=== PATIENT | female | born 1970 | race Caucasian/White ===

== ENCOUNTER 2023-09-30 10:21 | Outpatient (CLI) | payer BC, SELFPAY ==
--- NOTE | 2023-09-30 10:26 | MM_ITS ---
PROCEDURE INFORMATION: Exam: MG Bilateral Screening 3D Mammography Exam date and time: 09/30/2023 10:29 AM Age: 53 years old Clinical indication: Screening mammogram TECHNIQUE: Imaging protocol: Bilateral Screening tomosynthesis and 2D mammography including computer-aided detection (CAD) when performed. COMPARISON: No relevant prior studies available. FINDINGS: MAMMOGRAPHY: Breast composition: The breasts are almost entirely fatty. Mass: None. Architectural distortion: No new or suspicious architectural distortion. Calcifications: No new or suspicious calcifications are present Asymmetric density: No new or suspicious asymmetric density is present Skin thickening: None. Axillary adenopathy: None. IMPRESSION: No mammographic evidence of malignancy. Recommend annual screening mammography unless otherwise clinically indicated. ASSESSMENT: BI-RADS category 1: Negative
== END 2023-09-30 23:59 ==
LOC: RAD 10:21
PROVIDERS: PCP Nurse Practitioner Family; Visit Provider Nurse Practitioner Family
DX: Z12.31 Encounter for screening mammogram for malignant neoplasm of breast (principal)
CPT/HCPCS: 77063; 77067

== ENCOUNTER 2024-01-27 10:13 | Outpatient (CLI) | payer BC, SELFPAY ==
--- NOTE | 2024-01-27 10:18 | XR_ITS ---
FINAL REPORT CLINICAL HISTORY: Foot pain x2 weeks COMPARISON: None FINDINGS: 3 images of the right foot were obtained. There is no evidence of fracture or dislocation. There is mild and moderate hypertrophic change of the first MTP joint. Moderate plantar spurring is present. Small osteophytes are noted. There is no soft tissue abnormality identified. IMPRESSION: No acute bony abnormality. Degenerative change as described above. Reviewed, Interpreted and Dictated by Christian Irving MD Transcribed by Bea Cordero Authenticated and [facility]
== END 2024-01-27 23:59 | disposition home or self-care (01) ==
LOC: RAD 10:14
PROVIDERS: PCP Nurse Practitioner Family; Visit Provider Nurse Practitioner
DX: B35.3 Tinea pedis (principal); L84 Corns and callosities; E11.8 Type 2 diabetes mellitus with unspecified complications; Z79.4 Long term (current) use of insulin; Z79.84 Long term (current) use of oral hypoglycemic drugs
CPT/HCPCS: 73630

== ENCOUNTER 2024-02-02 09:00 | Outpatient (CLI) | payer BC, SELFPAY ==
[2024-02-02 09:53] LABS: Blood Urea Nitrogen 13 mg/dl (7-17); Estimated Glomerular Filt Rate 76 ml/min (>60); GFR (African American) 92 ML/MIN (>60)
== END 2024-02-02 23:59 | disposition home or self-care (01) ==
LOC: LAB 09:02
PROVIDERS: Nurse Practitioner Family; PCP Nurse Practitioner Family; Visit Provider Nurse Practitioner Family
DX: Z76.89 Persons encountering health services in other specified circumstances (principal); Z01.812 Encounter for preprocedural laboratory examination
CPT/HCPCS: 82565; 84520

== ENCOUNTER 2024-02-03 09:18 | Outpatient (CLI) | payer BC, SELFPAY ==
--- NOTE | 2024-02-03 09:23 | CT_ITS ---
FINAL REPORT TECHNIQUE: Axial CT images of the abdomen and pelvis were obtained before and after the administration of IV contrast. This study was performed with techniques to keep radiation doses as low as reasonably achievable (ALARA). Individualized dose reduction techniques using automated exposure control or adjustment of mA and/or kV according to the patient's size were employed. CLINICAL HISTORY: ABDOMINAL MASS COMPARISON: None FINDINGS: Abdomen: There is partial visualization of a 5 mm nodule in the left lung base, best seen on the first image of the sequence. There is a 4 mm nodule in the right lung base, best seen on image #9. The heart is normal in size. There is mild fatty infiltration of the liver present. The liver is enlarged. . The spleen is unremarkable. No adrenal masses present. The pancreas has an unremarkable appearance. The kidneys enhance normally. The aorta is normal in caliber. There is a fat-containing umbilical hernia seen best on image #97 of series 5. There is a large hernia in the mid anterior pelvic wall, eccentric to the left, with several loops of small bowel. There is mild mucosal thickening of the the small bowel wall contained within the hernia sac with mild enlargement of the more proximal small bowel loops. No free fluid is identified. Precontrast images demonstrate no evidence of nephrolithiasis. Pelvis: The appendix is not well visualized. The urinary bladder is unremarkable. No inflammatory process is seen. There is no evidence of mass or adenopathy. There is no evidence of bowel obstruction. IMPRESSION: Large hernia in the mid anterior pelvic wall, eccentric to the left, which contains several loops of small bowel. There is mild wall thickening of the small bowel contained within the hernia sac, with mild enlargement of more proximal small bowel loops. Prompt surgical evaluation is recommended. At least 2 nodules are visualized in the lung bases, and correlation with other imaging modalities such as chest CT is suggested. Reviewed, Interpreted and Dictated by Christian Irving MD Transcribed by Bea Cordero Authenticated and [facility]
[2024-02-03] MEDS: IOPAMIDOL-370 (76%);100ML BOTTLE 75 ML IV (09:59)
[2024-02-03] MEDS: SODIUM CHLORIDE 0.9% 10ML SYR (RAD ONLY) 10 ML IV (09:59)
== END 2024-02-03 23:59 | disposition home or self-care (01) ==
LOC: RAD 09:18
PROVIDERS: PCP Nurse Practitioner Family; Visit Provider Nurse Practitioner Family
DX: R19.00 Intra-abdominal and pelvic swelling, mass and lump, unspecified site (principal)
CPT/HCPCS: 74178; Q9967

== ENCOUNTER 2024-02-10 11:10 | Outpatient (CLI) | payer BC, SELFPAY ==
--- NOTE | 2024-02-10 11:14 | CT_ITS ---
FINAL REPORT TECHNIQUE: The patient was injected with IV contrast. Axial images were obtained of the chest by computed tomography. Precontrast images were also obtained. This study was performed with techniques to keep radiation doses as low as reasonably achievable (ALARA). Individualized dose reduction techniques using automated exposure control or adjustment of mA and/or kV according to the patient's size were employed. CLINICAL HISTORY: MULTIPLE LUNG NODULES COMPARISON: CT abdomen and pelvis 02/03/2024 FINDINGS: CT OF THE CHEST WITH AND WITHOUT CONTRAST: There is no axillary adenopathy. There is no mediastinal or hilar adenopathy. Heart size is normal. There is severe left coronary artery calcification. There is no pericardial or pleural effusion identified. Mild emphysema is noted. There is a 7 mm nodule at the left lower lobe. There are several other less than 5 mm bilateral pulmonary nodules. Mild atelectasis or scarring is noted at the left lung base. IMPRESSION: Bilateral lung nodules as above. Recommend additional follow-up chest CT in 6 months to evaluate for stability. Reviewed, Interpreted and Dictated by Brian Hernandez III, MD Transcribed by Jagruti Muro Authenticated and [facility]
[2024-02-10] MEDS: SODIUM CHLORIDE 0.9% 10ML SYR (RAD ONLY) 10 ML IV (11:36)
[2024-02-10] MEDS: IOPAMIDOL-370 (76%);100ML BOTTLE 75 ML IV (11:36)
== END 2024-02-10 23:59 | disposition home or self-care (01) ==
LOC: RAD 11:10
PROVIDERS: PCP Nurse Practitioner Family; Visit Provider Nurse Practitioner Family
DX: R91.8 Other nonspecific abnormal finding of lung field (principal)
CPT/HCPCS: 71270; Q9967

== ENCOUNTER 2024-04-13 11:03 | Outpatient (CLI) | payer BC, SELFPAY ==
[2024-04-13 11:25] LABS: Blood Urea Nitrogen 11 mg/dl (7-17); Estimated Glomerular Filt Rate 58 ml/min (>60); GFR (African American) 70 ML/MIN (>60)
== END 2024-04-13 23:59 | disposition home or self-care (01) ==
LOC: LAB 11:05
PROVIDERS: PCP Nurse Practitioner Family; Visit Provider Physician Assistant
DX: R06.02 Shortness of breath (principal)
CPT/HCPCS: 36415; 82565; 84520

== ENCOUNTER 2024-04-15 08:00 | Outpatient (CLI) | payer BC, SELFPAY ==
[2024-04-15] VITALS (11 sets, daily range): BP systolic 114–131; BP diastolic 52–74; PULSE 54–81; RESP 18; TEMP 36.6; O2SAT 97–100; BMI 40.8
--- NOTE | 2024-04-15 08:00 | CA_ITS ---
APPROVED REPORT EXAM: Comprehensive 2D, Doppler, and color-flow Echocardiogram Bandage Maker: Emilie De La Paz RDCS Ht: 5 ft 1 in Wt: 216lbs BSA: 1.95 BP: 129/50 mmHg Indications: ABN EKG,COPD,DM,HTN,HLP,CP 2D Dimensions Left Atrium 4.54 cm F: 2.7 - 3.8 LVOT 1.81 cm (M/F) 1.5-2.5 M-Mode Dimensions RVDd 2.39 cm (0.9-2.6) LVDd 5.93 cm (3.5-5.7) Ao Diam 2.90 cm (2.0-3.7) LVDs 4.03 cm (3.5-5.7) IVSd 0.68 cm (0.6-1.1) PWd 0.87 cm (0.6-1.1) EF (Teich) 59.30% FS 32.00% EDV (Teich) 175.20 mL TAPSE 1.87 (<1.7) ESV (Teich) 71.30 mL LV Diastology E Decel Time 206 (160-240 msec) E/A Ratio 1.1 MED E' 6.0 (>= 7 cm/sec) E'/MED E' Ratio 14.53 (<= 14) LAT E' 9.6 (>= 10 cm/sec) E/LAT E' Ratio 9.08 (<= 14) Mitral Valve MV E Max Liu. 87.0 (40-130 cm/s) MV A Velocity 79.0 (40-130 cm/s) E/A Ratio 1.10 MV Decel. Time 206 (160-240 ms) Left Ventricle The left ventricle is normal size. The left ventricular systolic function is normal. The left ventricular ejection fraction is within the normal range. There is normal left ventricular wall thickness. There is normal LV segmental wall motion. The left ventricular diastolic function is normal. LVEF is 55%. Right Ventricle The right ventricle is normal size. The right ventricular systolic function is normal. Atria The left atrium size is normal. The right atrium size is normal. There is no Doppler evidence of interatrial shunt. Aortic Valve The aortic valve is mildly thickened. There is no aortic valvular stenosis. Trace aortic regurgitation. Mitral Valve The mitral valve is normal in structure. No evidence of mitral valve stenosis. Trace mitral regurgitation. Tricuspid Valve The tricuspid valve leaflets are thin and pliable. Trace tricuspid regurgitation. Pulmonic Valve The pulmonary valve is normal in structure. Trace pulmonic regurgitation. Great Vessels The aortic root is normal in size. The ascending aorta is not well visualized. IVC is normal in size and collapses >50% with inspiration. Pericardium There is no pericardial effusion. Other Information Study Quality: Fair Conclusion Normal biventricular systolic function. No significant valvular stenosis or regurgitation. Electronically signed by : Capri Reyes MD 04/18/2024 19:33:05
--- NOTE | 2024-04-15 08:30 | CT_ITS ---
APPROVED REPORT Paper Making Machine Operator: CLINICAL INDICATION Chest Pain TECHNIQUE Image Acquisition: A 128 slice MDCT scanner ([employer] View) was used for data acquisition. A noncontrast coronary calcium scan was performed. A CT attenuation threshold of 130 Hounsfield units (HU) was used for the detection of calcium in contiguous voxels of 1 sq mm in area to be counted as individual lesions. Bolus tracking in the ascending aorta with a threshold of 180 HU was performed. Immediately afterwards, ECG synchronized cardiac CT was then performed from the cardiac base to apex using retrospective gating with ECG tube current modulation. A total of 85 mL of Isovue 370 mg/mL contrast medium was administered at 5 mL/sec followed by a saline flush using a biphasic injection protocol. A tube voltage of 120 KVp was used. The patient received the following medications prior to the cardiac CT. 5 mg of intravenous metoprolol 0.8 mg of sublingual nitroglycerin The average heart rate at the time of acquisition was 61 bpm and regular. Image Reconstruction Transaxial images were reconstructed at 0.67 mm slide thickness. Data was reviewed interactively on an advanced workstation capable of 2 and 3-dimensional displays in all conventional reconstruction formats, including multiplanar reformations, maximum intensity projections, curved multiplanar reformations, and volume rendered reconstructions. When applicable, selected routine images describing the relevant coronary anatomy and pathology were saved and sent to PACS. Complications None Technical Quality Overall image quality was suboptimal. Coronary artery opacification was fair. Total DLP (Dose-Length Product) is 3925.5 mGy-cm. The reported value represents the total of one or more individual components during the CT acquisition of this date and at this time, and as such, the same value may appear in more than one CT report depending on the interpreting/reporting physicians. COMPARISON None FINDINGS CT Coronary Calcium Scoring LMA (Left Main Artery) = 0 LAD (Left Anterior Descending) = 297 LCX (Left Coronary Circumflex) = 17 RCA (Right Coronary Artery) = 14 Total Calcium Score = 327 using the AJ-130 method. The observed calcium score of 327 is at 99th percentile for subjects of the same age, sex, and race/ethnicity. The interpretation of the calcium heart score is based on the following continuum*: 0 = no calcified plaque detected (risk of coronary artery disease is very low ??? less than 5%) 1-10 = calcium detected in extremely minimal levels (risk of coronary diseases is still low ??? less than 10%) 11-100 = mild levels of plaque detected with certainty (mild or minimal narrowing of heart arteries is likely) 101-400 = definite,at least moderate levels of plaque detected (relatively high risk of a heart attack within 3-5 years) >401-999 = extensive levels of plaque detected (high risk of heart attack, high levels of vascular disease are present, high likelihood of at least one significant coronary narrowing) *The calcium heart score quantifies the burden of coronary calcification/plaque in the coronary arteries. The calcium heart score is not able to evaluate the presence or burden of non-calcified (i.e. soft) plaque. There is also identifiable calcification in the ascending and descending thoracic aorta. Coronary CT Angiography The coronary arterial system is right dominant. Quantitative Stenosis Grading: Left Main (LM): The left main originates normally from the left sinus of Valsalva. The LM bifurcates into the left anterior descending artery and left circumflex artery. The LM is patent with no evidence of atherosclerosis. Left Anterior Descending (LAD) and Diagonal Branches: The LAD gives off 2 diagonal branch(es). Grossly, there is mixed calcified/noncalcified plaque in the proximal LAD, with up to 50 to 70% luminal stenosis. There is no evidence of LAD-myocardial bridge. Left Circumflex (LCX) and Obtuse Marginals (OM): The LCX gives off 1 Obtuse Marginal (OM) branch(es). There is calcification in the proximal LCx, with < 30% luminal stenosis. Right Coronary Artery (RCA): The RCA originates normally from the right sinus of Valsalva. The RCA gives off a posterior descending artery (PDA) and posterolateral (PL) branches. There is mixed calcified/noncalcified plaque in the proximal RCA, with 30-50% luminal stenosis. Non-Coronary Cardiac Findings: Analysis of the left ventricular (LV) structure and function was performed after 3-D reconstruction of the LV from axial images, with user-corrected automatic contouring for assessment of LV volumes and user-defined reconstruction from oblique planes for measurement of 3-D cardiac structure and function. -The left ventricle systolic function is normal. -There is no left atrial appendage filling defect. Two right pulmonary veins and two left pulmonary veins drain normally into the left atrium. -No pericardial thickening or calcification. -Central and branch pulmonary arteries in the [id number] are unremarkable. -Thoracic aorta within the visualized thoracic aortic-branches in the [id number] is unremarkable. Extracardiac Structures No significant extra-cardiac findings. Note, however, that this study is focused on the cardiac findings. IMPRESSION -Presence of coronary calcification with an Agatston score = 327 using the AJ-130 method. -The observed calcium score of 327 is at 99th percentile for subjects of the same age, sex, and race/ethnicity. -Multivessel atherosclerotic coronary disease with possible evidence of significant flow-limiting atherosclerosis of the proximal LAD segment. -CAD-RADS 3. Management recommendations per ACC/AHA guidelines*, as clinically appropriate. *Recommendations: CAD RADS 0: Reassurance. Consider non-atherosclerotic causes of chest pain. CAD RADS 1: Consider non-atherosclerotic causes of chest pain. Consider preventive therapy and risk factor modification. CAD RADS 2: Consider non-atherosclerotic causes of chest pain. Consider preventive therapy and risk factor modification, particularly for patients with nonobstructive plaque in multiple segments. CAD RADS 3: Consider further functional testing. Consider symptom-guided anti-ischemic and preventive pharmacotherapy as well as risk factor modification per published guideline statements. CAD RADS 4A: Consider further functional testing or invasive coronary angiography with revascularization per published guideline statements. Consider symptom-guided anti-ischemic and preventive pharmacotherapy as well as risk factor modification per published guideline statements. CAD RADS 4B: Invasive coronary angiography recommended with revascularization per published guideline statements. Consider symptom-guided anti-ischemic and preventive pharmacotherapy as well as risk factor modification per published guideline statements. CAD RADS 5: Consider invasive angiography and/or viability assessment with revascularization per published guideline statements. Consider symptom-guided anti-ischemic and preventive pharmacotherapy as well as risk factor modification per published guideline statements. CRITICAL RESULT None COMMUNICATION Per this written report The coronary and cardiac findings of this CCTA were reviewed, reported, and signed by Yonas Reyes MD (Concrete Fence Builder) Conclusion Electronically signed by : Capri Reyes MD 04/15/2024 14:47:54
[2024-04-15 09:02] LABS: POC Glucose,Bedside 203 (70-110)
[2024-04-15] MEDS: NITROGLYCERIN 0.4MG SL TABLET SL (09:17)
[2024-04-15] MEDS: METOPROLOL TARTRATE 5MG/5ML VIAL 5 MG IV (09:23)
[2024-04-15] MEDS: SODIUM CHLORIDE 0.9% 10ML SYR (RAD ONLY) 10 ML IV (10:32)
[2024-04-15] MEDS: IOPAMIDOL-370 (76%);100ML BOTTLE 85 ML IV (10:32)
[2024-04-15] MEDS: 0.9 % SODIUM CHLORIDE 50 ML VIAL IV (10:32)
== END 2024-04-15 10:15 | disposition home or self-care (01) ==
PROVIDERS: PCP Nurse Practitioner Family; Visit Provider Physician Assistant
DX: R94.31 Abnormal electrocardiogram [ECG] [EKG] (principal); R06.00 Dyspnea, unspecified; R07.9 Chest pain, unspecified; I25.10 Atherosclerotic heart disease of native coronary artery without angina pectoris; R60.9 Edema, unspecified
CPT/HCPCS: 75574; 82962; 93306; Q9967

== ENCOUNTER 2024-05-11 08:15 | Day surgery (SDC) | payer BC, SELFPAY ==
[2024-05-11] VITALS (11 sets, daily range): BP systolic 116–145; BP diastolic 63–77; PULSE 70–78; RESP 16–20; TEMP 36.6; O2SAT 94–99; BMI 40.6
--- NOTE | 2024-05-11 07:03 | IR_ITS ---
APPROVED REPORT Patient Location: Outpatient Boxing Inspector: DANIEL Morillo RT (R) PROCEDURES Left heart catheterization Left ventriculogram Selective coronary angiogram INDICATION Abnormal CCTA, Angina pectoris Informed consent was obtained prior to the procedure. COMPLICATIONS NONE Estimated Blood Loss: LESS THAN 10 ML TECHNIQUE One percent lidocaine used to anesthetize the right anterior aspect of the wrist. The right radial artery was accessed via the Seldinger technique. A 6 Bulgarian sheath was placed in the right radial artery. 2.5 mg of Verapamil, 800 mcg of nitroglycerin, 1mg Lidocaine and 5000 U Heparin were given through the arterial sheath. The papa catheter was also used to perform left heart catheterization, left ventriculogram and selective coronary angiogram. At the end of the procedure the sheath was removed good hemostasis was achieved using Traclet band, patient was transferred to the postop holding area in stable condition. ANGIOGRAPHIC RESULTS The left main artery Normal The left anterior descending artery Is proximally calcified with wide patency followed by mid vessel smooth 20 to 30% stenosis The circumflex artery Dominant with luminal regularities The right coronary artery Nondominant with proximal 10 to 20% luminal regularities The HOWARD ventriculogram reveals Normal 65% The left ventricular end-diastolic pressure 15 to 20 mmHg IMPRESSION Mild nonflow limiting coronary disease in the mid LAD Normal ejection fraction Mildly elevated LVEDP PLAN 1. Risk factor modification 2. Medical management Electronically signed by : Augustin Sumner MD 05/11/2024 10:57:39
[2024-05-11 08:50] LABS: Basophils # 0.1 K/mm3 (0-0.2); Basophils % 0.8 % (0.1-2.0); Eosinophils # 0.3 K/mm3 (0.0-0.4); Eosinophils % 2.4 % (0.1-12.0); Hemoglobin 12.7 g/dL (12.2-16.2); Lymphocytes # 2.2 K/mm3 (0.7-4.5); Lymphocytes % 15.6 % (10-50); Mean Corpuscular HGB Conc 31.7 g/dL (31.8-35.4); Mean Corpuscular Volume 94.6 fl (81-99); Mean Platelet Volume 9.6 fl (7.4-10.4); Monocytes # 0.9 K/mm3 (0.1-1.0); Monocytes % 6.5 % (1.7-9.3); Neutrophils # 10.7 K/mm3 (1.8-7.8); Neutrophils % 74.7 % (37.0-80.0); Platelet Count 258 K/mm3 (142-424); Red Blood Count 4.23 M/mm3 (4.20-5.40); Red Cell Distribution Width 14.8 % (11.5-17.5); White Blood Count 14.3 K/mm3 (4.8-10.8)
[2024-05-11 09:05] LABS: Chloride 99 mmol/L (98-107)
[2024-05-11 09:06] LABS: Potassium 3.8 mmoL/L (3.5-5.1); Sodium 135 mmol/L (136-145)
[2024-05-11 09:08] LABS: Blood Urea Nitrogen 17 mg/dl (7-17); Creatinine Clearance Estimated 72 mL/min (50-200); Estimated Glomerular Filt Rate 39 ml/min (>60); GFR (African American) 48 ML/MIN (>60)
[2024-05-11 09:09] LABS: Anion Gap 9.8 mEq/L (5-15); Calcium 9.6 mg/dl (8.4-10.2); Carbon Dioxide 30 mmol/L (22.0-30.0); Glucose 344 mg/dl (74-100)
[2024-05-11] MEDS: NITROGLYCERIN 800MCG/8ML SYR (CATH LAB) 800 MCG IA (10:33)
[2024-05-11] MEDS: VERAPAMIL 2.5MG/ML 2ML VIAL 2.5 MG IV (10:33)
[2024-05-11] MEDS: diphenhydrAMINE 50MG/ML VIAL 50 MG IV (10:33)
[2024-05-11] MEDS: HEPARIN 1,000 UNITS/ML 10ML VIAL (CATH LAB) 10000 UNIT IV (10:34)
[2024-05-11] MEDS: LIDOCAINE 1% 10ML MDV 20 ML IJ (10:34)
[2024-05-11] MEDS: HEPARIN 1,000 UNITS/500ML NS (CATH LAB) 3000 UNIT IV (10:34)
[2024-05-11] MEDS: 0.9 % SODIUM CHLORIDE 500 ML 25 ML IV (10:35)
[2024-05-11] MEDS: FENTANYL 100MCG/2ML VIAL 50 MCG IV (10:36)
[2024-05-11] MEDS: MIDAZOLAM HCL 1MG/1ML 5ML VIAL 1 MG IV (10:36)
[2024-05-11] MEDS: IOPAMIDOL-370 (76%);100ML BOTTLE 60 ML IV (12:20)
== END 2024-05-11 13:35 | disposition home or self-care (01) ==
LOC: CATHLAB 08:17
PROVIDERS: PCP Nurse Practitioner Family; Visit Provider Internal Medicine
DX: I25.118 Atherosclerotic heart disease of native coronary artery with other forms of angina pectoris (principal); Z79.899 Other long term (current) drug therapy; Z79.4 Long term (current) use of insulin; J44.9 Chronic obstructive pulmonary disease, unspecified; Z99.81 Dependence on supplemental oxygen; F17.210 Nicotine dependence, cigarettes, uncomplicated
CPT/HCPCS: 80048; 85025; 93458; 99152; C1725; C1769; J1200; J1644; J2250; J3010; Q9967